=== PATIENT | female | born 1985 | race Caucasian/White ===

== ENCOUNTER 2016-10-18 05:44 | Day surgery (SDC) | payer OTHER ==
[~2016-10-18] VITALS: Ht 170.2 cm; Wt 117.9 kg
[~2016-10-18 05:44] MED LIST: EXCEDRIN MIGRA1 EAC3 PO; NEXPLANON68 MG SC; NOHOMEMEDS; SUBOXONE 4 MG-1 EACH SL; TRAZADONE; Tylenol Extra Streng PO
[2016-10-18 06:01] VITALS: BP 125/82
[2016-10-18 07:41] LABS: METH RESISTANT S AUREUS PCR NEGATIVE (NEGATIVE); PROBE CHECK PASS; SPECIMEN PROCESSING CONTROL PASS
[2016-10-18] MEDS ORDERED: NORCO 10/3251 TABLET PO (08:36)
[2016-10-18 09:55] VITALS: BP 114/78
== END 2016-10-18 10:20 | disposition home or self-care (01) ==
LOC: SDC 05:44
PROVIDERS: Obstetrics & Gynecology
PROC: 0U574ZZ Destruction of Bilateral Fallopian Tubes, Percutaneous Endoscopic Approach (ICD-10-PCS; principal; 2016-10-18)
DX: J45.909 Unspecified asthma, uncomplicated (principal)
CPT/HCPCS: 87641; J0131; J0330; J1100; J2250; J2405; J2710; J2765; J3010; S0020